=== PATIENT | female | born 1980 | race American Indian/Alaskan Native ===

== ENCOUNTER 2020-05-09 18:56 | Emergency (ER) | payer SELFPAY ==
[2020-05-09 19:04] VITALS: BP 143/102
--- NOTE | 2020-05-09 19:09 | Event Note ---
ED Screening Note Date of service: 05/09/20 Time: 19:08 ED Screening Note: Patient complains of migraine x1 week History of migraines currently taking Imitrex and multiple other medications- states these are now working Follows with neurology for patient This initial assessment/diagnostic orders/clinical plan/treatment(s) is/are subject to change based on patients health status, clinical progression and re- assessment by fellow clinical providers in the ED. Further treatment and workup at subsequent clinical providers discretion. Patient/guardian urged not to elope from the ED as their condition may be serious if not clinically assessed and managed. Initial orders include: Labs Further evaluation in ACC
[2020-05-09 19:46] LABS: Basophils # (Auto) 0.1 K/mm3 (0.0-0.1); Basophils % (Auto) 1.1 % (0.0-1.8); Eosinophils # (Auto) 0.3 K/mm3 (0.0-0.4); Eosinophils % (Auto) 4.1 % (0.0-4.3); Hematocrit 39.5 % (30.3-42.9); Hemoglobin 12.4 gm/dl (10.1-14.3); Lymphocytes # (Auto) 2.7 K/mm3 (1.2-5.4); Lymphocytes % (Auto) 40.4 % (13.4-35.0); Mean Corpuscular HGB Conc 32 % (30-34); Mean Corpuscular Volume 81 fl (79-97); Monocytes # (Auto) 0.6 K/mm3 (0.0-0.8); Monocytes % (Auto) 9.6 % (0.0-7.3); Platelet Count 346 K/mm3 (140-440); Red Blood Count 4.86 M/mm3 (3.65-5.03); Red Cell Distribution Width 16.4 % (13.2-15.2)
[2020-05-09 20:03] LABS: Alanine Aminotransferase 16 units/L (7-56); Albumin 4.5 g/dL (3.9-5); Blood Urea Nitrogen 12 mg/dL (7-17); Calcium 9.6 mg/dL (8.4-10.2); Hemolysis Index 62
[2020-05-09] MEDS ORDERED: METOCLOPRAMIDE 10 MG/2 ML INJ IV ONE (20:04)
[2020-05-09] MEDS ORDERED: diphenhydrAMINE 50 MG/ML VIAL IV ONE (20:04)
[2020-05-09] MEDS ORDERED: SODIUM CHLORIDE 0.9% 1000 ML 1,000 ML IV ONE (20:04)
[2020-05-09 20:05] LABS: BUN/Creatinine Ratio 17
--- NOTE | 2020-05-09 20:06 | Cat Scan Report ---
NONENHANCED CT SCAN OF THE HEAD: INDICATION / CLINICAL INFORMATION: 39 years Female; abnormal migraine. TECHNIQUE: Routine CT head without contrast. All CT scans at this location are performed using CT dos e reduction for ALARA by means of automated exposure control. COMPARISON: None. FINDINGS: BRAIN / INTRACRANIAL CONTENTS: No acute hemorrhage, mass effect, midline shift, hydrocephalus, or acu te, large territorial infarct. No chronic infarct or focal atrophy. Normal brain volume and ventricul ar/sulcal size for age. No significant white matter abnormality. CRANIOCERVICAL JUNCTION: No significant abnormality. ORBITS: No significant abnormality of visualized orbits. SINUSES / MASTOIDS: No significant abnormality of the visualized paranasal sinuses or mastoid air kristi ls. ADDITIONAL FINDINGS: Incidental cyst of the cistern of velum interpositum IMPRESSION: Normal nonenhanced CT scan of the brain Signer Name: Brionna Quinones MD Signed: 05/09/2020 8:02 PM Workstation Name: [id number]
--- NOTE | 2020-05-09 21:10 | Emergency Department Report ---
ED Headache HPI - General Chief Complaint: Headache Stated Complaint: HEAD PAIN/NAUSEA Time Seen by Provider: 05/09/20 19:08 Source: patient, RN notes reviewed Exam Limitations: no limitations - History of Present Illness Initial Comments: This is a 39-year-old female nontoxic, well nourished in appearance, no acute signs of distress presents to the ED with c/o of acute on chronic headache. Patient describes headache as diffuse with level of 8 out of 10. Patient denies thunderclap headache. Patient denies any radiation of pain. Patient denies any head trauma. Patient denies any visual changes. Patient denies worse headache. Patient stated that darkness makes headache better and bright lights make the headache worse. Patient also has nausea vomiting but denies any abdominal pain. Denies any blood in vomit. Denies any diarrhea constipation. Patient denies any numbness, tingling, fever, chills, chest pain, shortness of breath, stiff neck. Patient denies facial drooping or one sided weakness. Patient denies any radiation of pain. Patient stated allergies to Flexeril and Toradol. Past medical history includes migraine headaches. Timing/Duration: episodic Quality: moderate Head Injury Location: other (diffuse) Recent Head Trauma: occasional headaches Associated Symptoms: denies symptoms. denies: confusion, fatigue, facial pain, fever/chills, flushing, loss of consciousness, nausea/vomiting, nasal congestion, nasal drainage, numbness in legs/feet, rash, seizures, sinus infection, stiff neck, vision changes, weakness Allergies/Adverse Reactions: Allergies cyclobenzaprine [From Flexeril] Allergy (Verified 05/09/20 18:58) Swelling ketorolac [From Toradol] Allergy (Verified 05/09/20 18:58) Swelling Home Medications: Ambulatory Orders Butalb/Acetaminophen/Caffeine [Fioricet 50-300-40 mg CAP] 1 cap PO Q8HR PRN #12 cap 05/09/20 ED Review of Systems ROS: Stated complaint: HEAD PAIN/NAUSEA Other details as noted in HPI Constitutional: denies: chills, fever Eyes: denies: eye pain, eye discharge, vision change ENT: denies: ear pain, throat pain Respiratory: denies: cough, shortness of breath, wheezing Cardiovascular: denies: chest pain, palpitations Endocrine: no symptoms reported Gastrointestinal: denies: abdominal pain, nausea, diarrhea Genitourinary: denies: urgency, dysuria, discharge Musculoskeletal: denies: back pain, joint swelling, arthralgia Skin: denies: rash, lesions Neurological: headache. denies: weakness, paresthesias Psychiatric: denies: anxiety, depression Hematological/Lymphatic: denies: easy bleeding, easy bruising ED Past Medical Hx - Past Medical History Previous Medical History?: Yes Hx Hypertension: Yes Hx Headaches / Migraines: Yes Additional medical history: IBS. Idiopathic intracranial hypertension - Surgical History Past Surgical History?: No - Medications Home Medications: Home Medications Medication Instructions Recorded Confirmed Last Taken Type Butalb/Acetaminophen/Caffeine 1 cap PO Q8HR PRN #12 cap 05/09/20 Unknown Rx [Fioricet 50-300-40 mg CAP] ED Physical Exam - General Limitations: No Limitations General appearance: alert, in no apparent distress - Head Head exam: Present: atraumatic, normocephalic - Eye Eye exam: Present: normal appearance, PERRL, EOMI - Neck Neck exam: Present: normal inspection, full ROM. Absent: tenderness, meningismus, lymphadenopathy - Respiratory Respiratory exam: Present: normal lung sounds bilaterally. Absent: respiratory distress, wheezes, rales, rhonchi, stridor, chest wall tenderness, accessory muscle use, decreased breath sounds, prolonged expiratory - Cardiovascular Cardiovascular Exam: Present: regular rate, normal rhythm, normal heart sounds. Absent: bradycardia, tachycardia, irregular rhythm, systolic murmur, diastolic murmur, rubs, gallop - GI/Abdominal GI/Abdominal exam: Present: soft, normal bowel sounds. Absent: distended, tenderness, guarding, rebound, rigid, diminished bowel sounds - Extremities Exam Extremities exam: Present: normal inspection, full ROM - Back Exam Back exam: Present: normal inspection, full ROM. Absent: tenderness, CVA tenderness (R), CVA tenderness (L), muscle spasm, paraspinal tenderness, vertebral tenderness, rash noted - Neurological Exam Neurological exam: Present: alert, oriented X3, normal gait - Expanded Neurological Exam Expanded Patient oriented to: Present: person, place, time Cranial nerves: EOM's Intact: Normal, Facial Sensation: Normal Cerebellar function: Finger to Nose: Normal Upper motor neuron: Pronator Drift: Normal, Sensory Extinction: Normal Motor strength exam: RUE: 5, LUE: 5, RLE: 5, LLE: 5 Best Eye Response ([place]): (4) open spontaneously Best Motor Response ([place]): (6) obeys commands Best Verbal Response ([place]): (5) oriented [place] Total: 15 - Psychiatric Psychiatric exam: Present: normal affect, normal mood - Skin Skin exam: Present: warm, dry, intact, normal color. Absent: rash ED Course Vital Signs 05/09/20 18:58 Temperature 98.5 F Pulse Rate 85 Respiratory 20 Rate Blood Pressure 143/102 [Right] O2 Sat by Pulse 98 Oximetry - Reevaluation(s) Reevaluation #1: 05/09/20 21:14 Patient is speaking in full sentences with no signs of distress noted. ED Medical Decision Making - Lab Data Result diagrams: 05/09/20 19:21 05/09/20 19:21 Lab Results 05/09/20 05/09/20 05/09/20 Range/Units 19:21 19:21 19:21 WBC 6.6 (4.5-11.0) K/mm3 RBC 4.86 (3.65-5.03) M/mm3 Hgb 12.4 (10.1-14.3) gm/dl Hct 39.5 (30.3-42.9) % MCV 81 (79-97) fl MCH 26 L (28-32) pg MCHC 32 (30-34) % RDW 16.4 H (13.2-15.2) % Plt Count 346 (140-440) K/mm3 Lymph % (Auto) 40.4 H (13.4-35.0) % [place] % (Auto) 9.6 H (0.0-7.3) % Eos % (Auto) 4.1 (0.0-4.3) % Baso % (Auto) 1.1 (0.0-1.8) % Lymph # (Auto) 2.7 (1.2-5.4) K/mm3 [place] # (Auto) 0.6 (0.0-0.8) K/mm3 Eos # (Auto) 0.3 (0.0-0.4) K/mm3 Baso # (Auto) 0.1 (0.0-0.1) K/mm3 Seg Neutrophils % 44.8 (40.0-70.0) % Seg Neutrophils # 2.9 (1.8-7.7) K/mm3 Sodium 137 (137-145) mmol/L Potassium 4.5 (3.6-5.0) mmol/L Chloride 105.6 (98-107) mmol/L Carbon Dioxide 22 (22-30) mmol/L Anion Gap 14 mmol/L BUN 12 (7-17) mg/dL Creatinine 0.7 (0.6-1.2) mg/dL Estimated GFR > 60 ml/min BUN/Creatinine Ratio 17 % Glucose 96 (65-100) mg/dL Calcium 9.6 (8.4-10.2) mg/dL Total Bilirubin < 0.20 (0.1-1.2) mg/dL AST 20 (5-40) units/L ALT 16 (7-56) units/L Alkaline Phosphatase 97 (35-129) units/L Total Protein 7.6 (6.3-8.2) g/dL Albumin 4.5 (3.9-5) g/dL Albumin/Globulin Ratio 1.5 % HCG, Qual Negative (Negative) - Radiology Data Referring Physician: YUE LAGUNA Patient Name: YUE FLORES Date of : 1980 Sex: Female Report Date: 2020-05-09 Report Status: [place] [address] Cat Scan Report Signed Patient: YUE FLORES R#: [id number] : 1980 Acct:[id number] Age/Sex: 39 / F ADM Date: 05/09/20 Loc: ED Attending Dr: Ordering Physician: YUE LAGUNA Date of Service: 05/09/20 Procedure(s): CT head/brain wo con Accession Number(s): [id number] cc: YUE LAGUNA NONENHANCED CT SCAN OF THE HEAD: INDICATION / CLINICAL INFORMATION: 39 years Female; abnormal migraine. TECHNIQUE: Routine CT head without contrast. All CT scans at this location are performed using CT dose reduction for ALARA by means of automated exposure control. COMPARISON: None. FINDINGS: BRAIN / INTRACRANIAL CONTENTS: No acute hemorrhage, mass effect, midline shift, hydrocephalus, or acute, large territorial infarct. No chronic infarct or focal atrophy. Normal brain volume and ventricular/sulcal size for age. No significant white matter abnormality. CRANIOCERVICAL JUNCTION: No significant abnormality. ORBITS: No significant abnormality of visualized orbits. SINUSES / MASTOIDS: No significant abnormality of the visualized paranasal sinuses or mastoid air cells. ADDITIONAL FINDINGS: Incidental cyst of the cistern of velum interpositum IMPRESSION: Normal nonenhanced CT scan of the brain Signer Name: Brionna Quinones MD Signed: 05/09/2020 8:02 PM Workstation Name: [id number] Transcribed By: BS Dictated By: Brionna Basilio MD Electronically Authenticated By: Brionna Basilio MD Signed Date/Time: 05/09/202001 DD/ 99 TD/TT: - Medical Decision Making This is a 39-year-old female that presents with headache. Patient is stable and was examined by me. Patient is neurologically stable. There is no stiff neck or neck pain. Vital signs are stable. Patient is afebrile. Patient received Benadryl, Reglan, and 1 L of normal saline which the patient stated that headache has subsided and resolved. Patient is notified of the CT results with no questions noted by the patient. A p.o. challenge has been obtained and patient tolerated well with no nausea vomiting. Patient was instructed not to operate any machinery after discharged due to drowsiness of Benadryl. Patient stated that a family member will drive patient home. Patient is discharged with Fioricet. Patient was referred to Follow-up with a primary care/neurologist doctor in 3-5 days or if symptoms worsen and continue return to emergency room as soon as possible. At time of discharge, the patient does not seem toxic or ill in appearance. No acute signs of distress noted. Patient agrees to discharge treatment plan of care. No further questions noted by the patient. Critical care attestation.: If time is entered above; I have spent that time in minutes in the direct care of this critically ill patient, excluding procedure time. ED Disposition Clinical Impression: Headache Qualifiers: Headache type: unspecified Headache chronicity pattern: episodic headache Intractability: not intractable Qualified Code(s): R51.9 - Headache, unspecified Disposition: DC-01 TO HOME OR SELFCARE Is pt being admited?: No Does the pt Need Aspirin: No Condition: Stable Instructions: Recurrent Migraine Headache, [id number] Additional Instructions: Follow-up with a primary care doctor in 3-5 days or if symptoms worsen and continue return to emergency room as soon as possible. Prescriptions: Butalb/Acetaminophen/Caffeine [Fioricet 50-300-40 mg CAP] 1 cap PO Q8HR PRN #12 cap PRN Reason: Headache Referrals: PRIMARY CAREMD [Referring] - 3-5 Days NAYLA JONES MD [Staff Physician] - 3-5 Days Forms: Work/School Release Form(ED) Time of Disposition: 21:26
== END 2020-05-09 21:57 | disposition home or self-care (01) ==
LOC: ED 18:56
DX: G43.909 Migraine, unspecified, not intractable, without status migrainosus (principal); I10 Essential (primary) hypertension
CPT/HCPCS: 36415; 70450; 80053; 84703; 85025; 96361; 96374; 96375; 99284; J1200; J2765; J7030

== ENCOUNTER 2020-09-18 09:28 | Emergency (ER) | payer OTHER ==
--- NOTE | 2020-09-18 09:37 | Event Note ---
ED Screening Note ED Screening Note: RECENT UTI ON AUGMENT AND FLAGYL NO WITH DIARRHEA AND ABD PAIN ? CAUSE ANTBX WILL CHECK UA TO BE SURE SHE IS RESPONDING HX PCOS LAST MENSES BRANDY This initial assessment/diagnostic orders/clinical plan/treatment(s) is/are subject to change based on patients health status, clinical progression and re-assessment by fellow clinical providers in the ED. Further treatment and workup at subsequent clinical providers discretion. Patient/guardian urged not to elope from the ED as their condition may be serious if not clinically assessed and managed. Initial orders include: UA
[2020-09-18 10:06] LABS: Bilirubin,Urine NEG (Negative); Blood,Urine LG (Negative); Color,Urine Amber (Yellow); Mucus,Urine 3+ /HPF
[2020-09-18 10:07] LABS: RBC,Urine > 182.0 /HPF (0.0-6.0)
[2020-09-18 10:38] LABS: Hematocrit 43.4 % (30.3-42.9); Hemoglobin 13.7 gm/dl (10.1-14.3); Mean Corpuscular HGB Conc 32 % (30-34); Mean Corpuscular Volume 78 fl (79-97); Red Blood Count 5.54 M/mm3 (3.65-5.03); Red Cell Distribution Width 15.1 % (13.2-15.2)
[2020-09-18 10:39] LABS: Platelet Count 155 K/mm3 (140-440)
[2020-09-18] MEDS ORDERED: LIDOCAINE-MPF (1%) 10 MG/1 ML VIAL 5 ML INFILTRATI ONE (10:55)
[2020-09-18] MEDS ORDERED: ONDANSETRON 4 MG ODT TAB PO ONE (10:55)
[2020-09-18] MEDS ORDERED: IBUPROFEN 800 MG TAB PO ONE (10:57)
--- NOTE | 2020-09-18 10:57 | Emergency Department Report ---
ED Dysuria HPI - HPI Chief Complaint: Nausea/Vomiting/Diarrhea Stated Complaint: FEVER/ABD PAIN Time Seen by Provider: 09/18/20 09:36 Duration: 5 Days Location of Discomfort: Suprapubic Symptoms: Dysuria: Yes, Frequency: No, Suprapubic Pain: Yes, Flank Pain: No, Fever: Yes, Hematuria: No, Abdominal Pain: No, Previous UTI's: Yes Other History: Patient is a 40-year-old -[place] female that comes to the emergency room complaining of suprapubic pain. Patient states that she is on Augmentin for a UTI. She is also on Flagyl for BV. She states that she is not getting better. Patient denied fever although she had a low-grade fever in triage. She is ambulatory, taking p.o. and in no acute distress on arrival to the ER. ED Review of Systems ROS: Stated complaint: FEVER/ABD PAIN Other details as noted in HPI Comment: All other systems reviewed and negative ED Past Medical Hx - Past Medical History Hx Hypertension: Yes Hx Headaches / Migraines: Yes Additional medical history: IBS. Idiopathic intracranial hypertension - Surgical History Past Surgical History?: No - Family History Family history: no significant - Social History Smoking Status: Never Smoker Substance Use Type: None - Medications Home Medications: Home Medications Medication Instructions Recorded Confirmed Last Taken Type Ondansetron [Zofran Odt] 4 mg PO Q8HR PRN #10 tab.rapdis 09/18/20 Unknown Rx Sulfamethoxazole/Trimethoprim 1 each PO BID #10 tablet 09/18/20 Unknown Rx [Bactrim DS TAB] Dysuria Exam - Exam General: Vital signs noted. No distress. Alert and acting appropriately. Exam: Yes Moist Mucous Membranes, No CVA Tenderness, No Abdominal Tenderness, No Rigidity or Guarding Labs: Lab Results 09/18/20 09/18/20 Range/Units 09:49 10:05 WBC 6.1 (4.5-11.0) K/mm3 RBC 5.54 H (3.65-5.03) M/mm3 Hgb 13.7 (10.1-14.3) gm/dl Hct 43.4 H (30.3-42.9) % MCV 78 L (79-97) fl MCH 25 L (28-32) pg MCHC 32 (30-34) % RDW 15.1 (13.2-15.2) % Plt Count 155 (140-440) K/mm3 Urine Color Rosa (Yellow) Urine Turbidity Cloudy (Clear) Urine pH 6.0 (5.0-7.0) Ur Specific [place] 1.025 (1.003-1.030) Urine Protein 100 mg/dl (Negative) mg/dL Urine Glucose (UA) Neg (Negative) mg/dL Urine Ketones Neg (Negative) mg/dL Urine Blood Lg (Negative) Urine Nitrite Neg (Negative) Urine Bilirubin Neg (Negative) Urine Urobilinogen 2.0 (<2.0) mg/dL Ur Leukocyte Esterase Mod (Negative) Urine WBC (Auto) 14.0 H (0.0-6.0) /HPF Urine RBC (Auto) > 182.0 (0.0-6.0) /HPF U Epithel Cells (Auto) 66.0 H (0-13.0) /HPF Urine Mucus 3+ /HPF ED Course Vital Signs 09/18/20 09/18/20 09:36 09:37 Temperature 99.6 F Pulse Rate 99 H Respiratory 20 Rate Blood Pressure 109/68 O2 Sat by Pulse 95 Oximetry ED Medical Decision Making - Lab Data Result diagrams: 09/18/20 10:05 09/18/20 10:05 - Medical Decision Making Labs 09/18/20 09/18/20 09/18/20 09:49 10:05 10:05 WBC 6.1 RBC 5.54 H Hgb 13.7 Hct 43.4 H MCV 78 L MCH 25 L MCHC 32 RDW 15.1 Plt Count 155 Sodium 141 Chloride 103.8 Carbon Dioxide 24 Anion Gap 17 BUN 11 Creatinine 1.0 Estimated GFR > 60 BUN/Creatinine Ratio 11 Glucose 112 H Calcium 8.6 Urine Color Rosa Urine Turbidity Cloudy Urine pH 6.0 Ur Specific [place] 1.025 Urine Protein 100 mg/dl Urine Glucose (UA) Neg Urine Ketones Neg Urine Blood Lg Urine Nitrite Neg Urine Bilirubin Neg Urine Urobilinogen 2.0 Ur Leukocyte Esterase Mod Urine WBC (Auto) 14.0 H Urine RBC (Auto) > 182.0 U Epithel Cells (Auto) 66.0 H Urine Mucus 3+ Vital Signs 09/18/20 09/18/20 09:36 09:37 Temperature 99.6 F Pulse Rate 99 H Respiratory 20 Rate Blood Pressure 109/68 O2 Sat by Pulse 95 Oximetry Patient states that she is on Augmentin. She is not . She has no nausea or vomiting. She does report some diarrhea with her antibiotics. Patient medicated with Rocephin IM. On discharge patient was noted to have spiked a temperature. She is given a liter normal saline. WBC noted to be normal. Urine has been sent for culture. SENT HOME ON BACTRIM. 1415 ON [address]; TEMP TRENDING DOWN. NO PAIN. TAKING PO. PT BEING DC HOME WITH DC PLAN OF CARE WITH PCP FOLLOW UP TO BE SURE SHE RESPONDS TO MEDICATIONS. NO N/V/D. NO ABD PAIN. NO CVA TENDERNESS; AMBULATORY AND TAKING PO ON DC. - Differential Diagnosis UTI, rule out Critical care attestation.: If time is entered above; I have spent that time in minutes in the direct care of this critically ill patient, excluding procedure time. ED Disposition Clinical Impression: UTI (urinary tract infection) Disposition: DC-01 TO HOME OR SELFCARE Is pt being admited?: No Does the pt Need Aspirin: No Condition: Stable Instructions: Urinary Tract Infection, Adult Additional Instructions: continue flagyl stop augment. continue med at home for yeast MEDS ORDERED TODAY EAT YOGURT DAILY DRINK A LOT OF WATER MOTRIN AND TYLENOL ALTERNATING FOR PAIN URINE WAS SENT FOR CULTURE TODAY WE WILL CALL YOU IF WE NEED TO CHANGE THE ANTIBIOTIC Prescriptions: Sulfamethoxazole/Trimethoprim [Bactrim DS TAB] 1 each PO BID #10 tablet Ondansetron [Zofran Odt] 4 mg PO Q8HR PRN #10 tab.rapdis PRN Reason: Vomiting Referrals: NAYLA JONES MD [Staff Physician] - 3-5 Days Forms: Work/School Release Form(ED) Time of Disposition: 11:00
[2020-09-18 10:59] LABS: BUN/Creatinine Ratio 11; Blood Urea Nitrogen 11 mg/dL (7-17); Calcium 8.6 mg/dL (8.4-10.2); Hemolysis Index 31
[2020-09-18] MEDS ORDERED: SODIUM CHLORIDE 0.9% 1000 ML 1,000 ML IV ONE (12:18)
[2020-09-18 13:54] VITALS: BP 123/63
[2020-09-18 15:05] LABS: Total Cells Counted 100
[2020-09-18 15:06] LABS: Hypochromasia 1+; Platelet Estimate Consistent w Auto
== END 2020-09-18 14:15 | disposition home or self-care (01) ==
LOC: ED 09:28
DX: N39.0 Urinary tract infection, site not specified (principal); I10 Essential (primary) hypertension; G43.909 Migraine, unspecified, not intractable, without status migrainosus; Z88.8 Allergy status to other drugs, medicaments and biological substances; Z79.899 Other long term (current) drug therapy
CPT/HCPCS: 36415; 80048; 81001; 85007; 85025; 87076; 87086; 87186; 96360; 96372; 99283; J0696; J7030; Q0162

== ENCOUNTER 2020-10-03 14:50 | Emergency (ER) | payer OTHER ==
--- NOTE | 2020-10-03 15:29 | Event Note ---
ED Screening Note Date of service: 10/03/20 Time: 15:27 ED Screening Note: 40-year-old female patient with history of pancreatitis and irritable bowel syndrome presents to the emergency department with complaints of epigastric abdominal pain and nausea for 5 days. Patient states she was evaluated by her primary care provider, who called her today to notify her that labs were concerning for pancreatitis, and advised her to come to the emergency department for further evaluation. No recent alcohol use. States her bowel movements are consistent with baseline. Last bowel movement was today. General: Awake, appropriately interactive, no acute distress. Neck: Supple. Full range of motion intact. Cardiovascular: Normal peripheral perfusion. Pulmonary: No respiratory distress. Patient is speaking normally without use of accessory muscles. Abdomen: Soft, non-distended. Diffuse upper abdominal tenderness most pronounced along the epigastric area without guarding, rigidity, or rebound. Skin: No apparent rashes or lesions. Neurological: No facial asymmetry. Speech is clear. Follows commands. Patient is alert and oriented. Musculoskeletal: Moves all four extremities spontaneously with normal range of motion. Psych: Cooperative. Appropriate mood and affect. I have greeted and performed a focused rapid initial assessment of this patient. A comprehensive ED assessment and evaluation of the patient, analysis of all test results, and completion of the medical decision-making process will be conducted by additional ED providers. This initial assessment/diagnostic orders/clinical plan/treatment(s) is/are subject to change based on patients health status, clinical progression and re-assessment. Further treatment and workup at subsequent clinical provider's discretion. Patient/guardian urged not to elope from the ED as their condition may be serious if not clinically as sessed and managed.
[2020-10-03 16:08] LABS: Bacteria,Urine 1+ /HPF (Negative); Bilirubin,Urine NEG (Negative); Blood,Urine SM (Negative); Color,Urine Yellow (Yellow); Mucus,Urine FEW /HPF; Protein,Urine <15 mg/dL mg/dL (Negative); Urobilinogen,Urine < 2.0 mg/dL (<2.0)
[2020-10-03 16:13] LABS: Basophils # (Auto) 0.1 K/mm3 (0.0-0.1); Basophils % (Auto) 1.2 % (0.0-1.8); Eosinophils # (Auto) 0.1 K/mm3 (0.0-0.4); Hemoglobin 12.7 gm/dl (10.1-14.3); Lymphocytes % (Auto) 40.6 % (13.4-35.0); Mean Corpuscular HGB Conc 32 % (30-34); Mean Corpuscular Volume 79 fl (79-97); Monocytes # (Auto) 0.7 K/mm3 (0.0-0.8); Monocytes % (Auto) 14.7 % (0.0-7.3); Platelet Count 287 K/mm3 (140-440); Red Blood Count 5.07 M/mm3 (3.65-5.03); Red Cell Distribution Width 15.9 % (13.2-15.2)
[2020-10-03 16:34] LABS: Partial Thromboplastin Time 23.2 Sec. (24.2-36.6)
[2020-10-03 16:41] LABS: Alanine Aminotransferase 25 units/L (7-56); BUN/Creatinine Ratio 11; Blood Urea Nitrogen 8 mg/dL (7-17); Calcium 9.2 mg/dL (8.4-10.2); Hemolysis Index 2
[2020-10-03] MEDS ORDERED: MORPHINE 4 MG/1 ML INJ IV ONE (21:11)
[2020-10-03] MEDS ORDERED: ONDANSETRON 4 MG/2 ML INJ IV ONE (21:11)
[2020-10-03] MEDS ORDERED: FAMOTIDINE 20 MG/2 ML INJ IV ONE (21:11)
[2020-10-03] MEDS ORDERED: SODIUM CHLORIDE 0.9% 1000 ML 1,000 ML IV ONE (21:19)
--- NOTE | 2020-10-03 21:24 | Emergency Department Report ---
<LASHONVANDANARodrigoSOPHIA - Last Filed: 10/03/20 22:33> ED Abdominal Pain HPI - General Chief Complaint: Abdominal Pain Stated Complaint: MY PANCREAS IS INFLAMMED Source: patient Mode of arrival: Ambulatory Limitations: No Limitations - History of Present Illness Initial Comments: Patient is a 40-year-old -Monegasque female with history of pancreatitis, hypertension, vje-vooqycr-tifwrgpze diabetes and irritable bowel syndrome and who was recently admitted for Covid pneumonia and admitted at the hospital until about 10 days ago when she was discharged from the hospital, presents to the ED with complaints of epigastric abdominal pain with nausea and vomiting for 5 days. Patient states that the pain has been constant, persistent and that it gets worse with any food intake. Patient states that she was evaluated by her primary care provider 2 days ago and who called her today to notify her that her most recent lab test results were concerning for acute pancreatitis, and advised her to come to the ED for further evaluation. Patient denies no recent alcohol use intake. Patient states that the last time she had nausea and vomiting was 2 days ago and admits that she has not been able to eat or drink anything because of persistent nausea and pain. Patient also states that her bowel movements are consistent with baseline with the last bowel movement being earlier today. Patient denies dizziness, syncope, fever, chills, diarrhea, dysuria, chest pain or shortness of breath, cough, headache, vaginal bleeding, vaginal discharge or dysuria, hematemesis or hematochezia, palpitations or change in vision. MD Complaint: abdominal pain -: Sudden, days(s) (5) Location: epigastric Radiation: none Migration to: no migration Severity: severe Severity scale (0 -10): 9 Quality: cramping, aching, sharp Consistency: constant Improves With: nothing Worsens With: eating, vomiting Context: other (Recently diagnosed with acute pancreatitis) Associated Symptoms: denies other symptoms, nausea, vomiting, anorexia. denies: diarrhea, fever, chills, constipation, dysuria, hematemesis, hematochezia, melena - Related Data LMP (females 10-50): 3 weeks Previous Rx's Medication Instructions Recorded Last Taken Type Sulfamethoxazole/Trimethoprim 1 each PO BID #10 tablet 09/18/20 Unknown Rx [Bactrim DS TAB] Azithromycin [Zithromax TAB] 500 mg PO QDAY 5 Days #5 tablet 10/04/20 Unknown Rx Esomeprazole Magnesium [NexIUM] 40 mg PO QDAY 30 Days #30 10/04/20 Unknown Rx capsule. Ondansetron [Zofran ODT TAB] 4 mg PO Q6HR PRN #10 tab.rapdis 10/04/20 Unknown Rx Allergies Allergy/AdvReac Type Severity Reaction Status Date / Time cyclobenzaprine Allergy Swelling Verified 09/18/20 09:31 [From Flexeril] ketorolac [From Toradol] Allergy Swelling Verified 09/18/20 09:31 ED Review of Systems Constitutional: denies: chills, fever Eyes: denies: eye pain, eye discharge, vision change ENT: denies: ear pain, throat pain Respiratory: denies: cough, shortness of breath, wheezing Cardiovascular: denies: chest pain, palpitations Endocrine: no symptoms reported Gastrointestinal: abdominal pain, nausea, vomiting. denies: diarrhea Genitourinary: denies: urgency, dysuria, discharge Musculoskeletal: denies: back pain, joint swelling, arthralgia Skin: denies: rash, lesions Neurological: denies: headache, weakness, paresthesias Psychiatric: denies: anxiety, depression Hematological/Lymphatic: denies: easy bleeding, easy bruising ED Past Medical Hx - Past Medical History Previous Medical History?: Yes Hx Hypertension: Yes Hx Headaches / Migraines: Yes Additional medical history: IBS, pancreatitis. Idiopathic intracranial hypertension - Surgical History Past Surgical History?: Yes Additional Surgical History: TL - Social History Smoking Status: Never Smoker Substance Use Type: None - Medications Home Medications: Home Medications Medication Instructions Recorded Confirmed Last Taken Type Sulfamethoxazole/Trimethoprim 1 each PO BID #10 tablet 09/18/20 Unknown Rx [Bactrim DS TAB] Azithromycin [Zithromax TAB] 500 mg PO QDAY 5 Days #5 tablet 10/04/20 Unknown Rx Esomeprazole Magnesium [NexIUM] 40 mg PO QDAY 30 Days #30 10/04/20 Unknown Rx capsule. Ondansetron [Zofran ODT TAB] 4 mg PO Q6HR PRN #10 tab.rapdis 10/04/20 Unknown Rx ED Physical Exam - General Limitations: No Limitations General appearance: alert, in no apparent distress - Head Head exam: Present: atraumatic, normocephalic, normal inspection - Eye Eye exam: Present: normal appearance, PERRL, EOMI Pupils: Present: normal accommodation - ENT ENT exam: Present: normal exam, normal orophraynx, mucous membranes moist, TM's normal bilaterally, normal external ear exam - Neck Neck exam: Present: normal inspection, full ROM - Respiratory Respiratory exam: Present: normal lung sounds bilaterally. Absent: respiratory distress, wheezes, rales, rhonchi, chest wall tenderness, accessory muscle use, decreased breath sounds, prolonged expiratory - Cardiovascular Cardiovascular Exam: Present: regular rate, normal rhythm, normal heart sounds. Absent: systolic murmur, diastolic murmur, rubs, gallop - GI/Abdominal GI/Abdominal exam: Present: soft, tenderness (Palpable epigastric tenderness), normal bowel sounds. Absent: guarding, rebound, hyperactive bowel sounds, hypoactive bowel sounds, organomegaly - Extremities Exam Extremities exam: Present: normal inspection, full ROM, normal capillary refill - Back Exam Back exam: Present: normal inspection, full ROM. Absent: tenderness, CVA tenderness (R), CVA tenderness (L), muscle spasm, paraspinal tenderness, vertebral tenderness - Neurological Exam Neurological exam: Present: alert, oriented X3, CN II-XII intact, normal gait, reflexes normal - Psychiatric Psychiatric exam: Present: normal affect, normal mood - Skin Skin exam: Present: warm, dry, intact, normal color. Absent: rash ED Medical Decision Making - Lab Data Result diagrams: 10/03/20 15:44 10/03/20 15:44 - Radiology Data Radiology results: report reviewed, image reviewed - Medical Decision Making This is a 40-year-old -[place]onegas[place] female with history of pancreatitis, hypertension, [id number] diabetes and irritable bowel syndrome and who was recently admitted for Covid pneumonia and admitted at the hospital until about 10 days ago when she was discharged from the hospital, presents to the ED with complaints of epigastric abdominal pain with nausea and vomiting for 5 days. Patient states that the pain has been constant, persistent and that it gets worse with any food intake. Patient states that she was evaluated by her primary care provider 2 days ago and who called her today to notify her that her most recent lab test results were concerning for acute pancreatitis, and advised her to come to the ED for further evaluation. Patient denies no recent alcohol use intake. Patient states that the last time she had nausea and vomiting was 2 days ago and admits that she has not been able to eat or drink anything because of persistent nausea and pain. Patient also states that her bowel movements are consistent with baseline with the last bowel movement being earlier today. In the ED, patient is alert and oriented x3 and is not in any distress but appears to be in pain. Patient was treated for pain in the ED and also given antiemetics and antacids. Lab test results were reviewed and are all nonactionable except for elevated lipase level of 288. Abdomen pelvis CT scan with IV contrast was ordered. Upon patient arrival in the room, the patient care was transferred to the ED attending physician Dr. Perales who shall review all lab test results as well as imaging reports and disposition the patient accordingly. - Differential Diagnosis Pancreatitis; GERD; gastritis; gastroenteritis; cholelithiasis; ACS ED Disposition Clinical Impression: Abdominal pain, acute, epigastric, Nausea and vomiting in adult patient, Pneumonia due to COVID-19 virus UTI (urinary tract infection) Qualifiers: Urinary tract infection type: acute cystitis Hematuria presence: with hematuria Qualified Code(s): N30.01 - Acute cystitis with hematuria Gastritis Qualifiers: Gastritis type: unspecified gastritis Chronicity: acute Gastritis bleeding: without bleeding Qualified Code(s): K29.00 - Acute gastritis without bleeding Disposition: DC- TO HOME OR SELFCARE Is pt being admited?: No Does the pt Need Aspirin: No Condition: Stable Instructions: Gastritis, Adult, Wixp-[id number], COVID-19, Abdominal Pain, Adult, Acute Pancreatitis, [id number]-Rmap, Nausea and Vomiting, Adult, Gila-vz-Hpon, Abdominal Pain, Adult, Pyrh-jo-Dehc, Bacterial Pneumonia (ED), Abdominal Pain (ED) Additional Instructions: Patient to follow-up with primary care in 2 to 3 days. Patient to follow-up with gastroenterology and pulmonology in 2 to 3 days. Patient to self quarantine for 14 days. Patient to rest. Patient to increase water. Patient to avoid strenuous exercise or heavy lifting until cleared by pulmonology and primary care. Patient to take Tylenol or ibuprofen as needed for pain. Patient to take meds as directed. Patient to return to the ER if condition worsens, changes or new symptoms arise. Prescriptions: Esomeprazole Magnesium [NexIUM] 40 mg PO QDAY 30 Days #30 capsule. Azithromycin [Zithromax TAB] 500 mg PO QDAY 5 Days #5 tablet Ondansetron [Zofran ODT TAB] 4 mg PO Q6HR PRN #10 tab.rapdis PRN Reason: Nausea And Vomiting Referrals: SOPHIA WORLEY MD [Staff Physician] - 2-3 Days NAYLA JONES MD [Staff Physician] - 2-3 Days GIOVANNA TURNER MD [Staff Physician] - 2-3 Days <COLEEN PERALES III - Last Filed: 10/04/20 06:09> ED Abdominal Pain HPI - General PUI?: No ED Review of Systems ROS: Stated complaint: MY PANCREAS IS INFLAMMED Other details as noted in HPI ED Physical Exam - General Limitations: No Limitations General appearance: alert, in no apparent distress - Head Head exam: Present: atraumatic, normocephalic - Eye Eye exam: Present: normal appearance - ENT ENT exam: Present: mucous membranes moist - Neck Neck exam: Present: normal inspection - Respiratory Respiratory exam: Present: normal lung sounds bilaterally. Absent: respiratory distress - Cardiovascular Cardiovascular Exam: Present: regular rate, normal rhythm. Absent: systolic murmur, diastolic murmur, rubs, gallop - GI/Abdominal GI/Abdominal exam: Present: soft, tenderness, normal bowel sounds. Absent: distended - Extremities Exam Extremities exam: Present: normal inspection - Back Exam Back exam: Present: normal inspection - Neurological Exam Neurological exam: Present: alert, oriented X3 - Psychiatric Psychiatric exam: Present: normal affect, normal mood - Skin Skin exam: Present: warm, dry, intact, normal color. Absent: rash ED Course Vital Signs 10/03/20 10/03/20 10/03/20 15:00 22:45 23:01 Temperature 98.2 F Pulse Rate 98 H 95 H 90 Respiratory 17 18 15 Rate Blood Pressure 149/103 135/94 Blood Pressure [Right] O2 Sat by Pulse 97 94 95 Oximetry 10/03/20 10/03/20 10/04/20 23:02 23:30 00:01 Temperature Pulse Rate 92 H 87 Respiratory 18 13 20 Rate Blood Pressure 136/87 Blood Pressure [Right] O2 Sat by Pulse 96 98 Oximetry 10/04/20 10/04/20 10/04/20 01:03 02:01 03:01 Temperature Pulse Rate 93 H 89 87 Respiratory 22 26 H Rate Blood Pressure Blood Pressure [Right] O2 Sat by Pulse 94 96 96 Oximetry 10/04/20 03:24 Temperature Pulse Rate 79 Respiratory 18 Rate Blood Pressure Blood Pressure 158/97 [Right] O2 Sat by Pulse 99 Oximetry - Reevaluation(s) Reevaluation #1: I assumed care of the patient I reviewed the findings and management of this patient in real-time and I have personally seen and examined this patient and participated in the decision making for this patient with the midlevel. Patient is a 40-year-old female who presents emergency room for abdominal pain and possible pancreatitis. Patient found to have elevated lipase. Patient will have a CT scan of the abdomen. I examined the patient. Patient has abdominal tenderness. 10/03/20 22:36 Reevaluation #2: Patient states feeling much better. Patient denies nausea. Patient denies pain. Patient states her epigastric pain has resolved. 10/04/20 01:24 Reevaluation #3: I discussed all results and clinical findings with patient. I discussed plan of care with patient. Patient agrees with plan of care. Patient is stable for discharge. Patient will be discharged home. Patient given discharge instructions. Patient voiced understanding of discharge instructions. 10/04/20 02:24 ED Medical Decision Making - Lab Data Result diagrams: 10/03/20 15:44 10/03/20 15:44 - Radiology Data Radiology results: report reviewed CT OF THE ABDOMEN AND PELVIS WITH INTRAVENOUS CONTRAST INDICATION / CLINICAL INFORMATION: Patient complains of epigastric abdominal pain. TECHNIQUE: The patient received 100 cc Omnipaque [address] scans at this location are performed using CT dose reduction for ALARA by means of automated exposure control. COMPARISON: None available. FINDINGS: ABDOMEN: The liver, spleen, gallbladder, bile ducts, pancreas, adrenal glands and right kidney are normal. There is a 2 mm nonobstructive calculus in the left mid kidney. I see no evidence of bowel obstruction, wall thickening or free air. No adenopathy is identified. There are numerous small patchy areas of groundglass parenchymal disease and consolidation scattered throughout both lower lung zones, right greater than left. No pleural effusion. PELVIS: The distal ureters and urinary bladder are normal. The uterus and ovaries are unremarkable area a normal appendix is present and there is no evidence of diverticulitis. No abnormal mass or fluid collection is seen. I do not identify a hernia. No acute osseous abnormality is present. IMPRESSION: 1. Moderate patchy multifocal parenchymal opacities in both lower lung zones are nonspecific, but likely inflammatory. Atypical causes of pneumonia, including viral pneumonia, should be considered. 2. Small nonobstructive left renal calculus. 3. No acute intra-abdominal disease is identified. - Medical Decision Making Patient is a 40-year-old female presenting for abdominal pain. Patient found to have an elevated lipase and had a CT scan of the abdomen. Patient CT scan abdomen shows no acute findings except for findings consistent with viral pneumonia and Covid. Patient oxygen saturation stable. Patient's pain was resolved with treatment. Patient received Pepcid and morphine. Patient will be treated for gastritis and UTI. Patient has already been treated for Covid. Patient was seen and discharged from the hospital. Patient stable for discharge. Patient given discharge instructions. Critical care attestation.: If time is entered above; I have spent that time in minutes in the direct care of this critically ill patient, excluding procedure time. ED Disposition Is pt being admited?: No Does the pt Need Aspirin: No Time of Disposition: 02:38
[2020-10-03] MEDS ORDERED: PIPERACILLIN/TAZOBACTAM 3.375 3.375 GM/50 ML BAG IV ONE (22:40)
--- NOTE | 2020-10-03 23:45 | History and Physical Report ---
History of Present Illness Date of examination: 10/03/20 Date of admission: 10/03/2020 Chief complaint: Abdominal Pain Past History Past Medical History: diabetes, hypertension, other (IBS, pancreatitis. Idiopathic intracranial hypertension) Past Surgical History: Other (Tubal Ligation) Social history: no significant social history Family history: no significant family history Medications and Allergies Allergies Allergy/AdvReac Type Severity Reaction Status Date / Time cyclobenzaprine Allergy Swelling Verified 09/18/20 09:31 [From Flexeril] ketorolac [From Toradol] Allergy Swelling Verified 09/18/20 09:31 Home Medications Medication Instructions Recorded Confirmed Last Taken Type Ondansetron [Zofran Odt] 4 mg PO Q8HR PRN #10 tab.rapdis 09/18/20 Unknown Rx Sulfamethoxazole/Trimethoprim 1 each PO BID #10 tablet 09/18/20 Unknown Rx [Bactrim DS TAB] Review of Systems Constitutional: no fever, no chills Ears, nose, mouth and throat: no nasal congestion, no sore throat Cardiovascular: no chest pain, no palpitations Respiratory: no cough, no shortness of breath Gastrointestinal: abdominal pain, nausea, vomiting, no diarrhea Genitourinary Female: no pelvic pain, no flank pain, no dysuria, no hematuria Musculoskeletal: no neck pain, no low back pain Integumentary: no rash, no pruritis Neurological: no headaches, no confusion Psychiatric: no anxiety, no depression Endocrine: no polyphagia, no polydipsia, no polyuria, no nocturia Exam - Constitutional Vitals: Temp Pulse Resp BP Pulse Ox 98.2 F 90 18 135/94 95 10/03/20 15:00 10/03/20 23:01 10/03/20 23:02 10/03/20 23:01 10/03/20 23:01 General appearance: Present: no acute distress, well-nourished - EENT Eyes: Present: PERRL, EOM intact. Absent: scleral icterus ENT: hearing intact, clear oral mucosa, dentition normal - Neck Neck: Present: supple, normal ROM - Respiratory Respiratory effort: normal Respiratory: bilateral: CTA - Cardiovascular Rhythm: regular Heart Sounds: Present: S1 & S2. Absent: gallop, systolic murmur, diastolic murmur, rub, click - Extremities Extremities: no ischemia, pulses intact, pulses symmetrical, No edema, normal temperature, normal color, Full ROM Peripheral Pulses: within normal limits - Abdominal General gastrointestinal: Present: soft, tender (Epigastric region. Minimal guarding. No rebound tenderness.), non-distended, normal bowel sounds. Absent: mass - Integumentary Integumentary: Present: clear, warm, dry. Absent: rash - Musculoskeletal Musculoskeletal: strength equal bilaterally - Psychiatric Psychiatric: appropriate mood/affect, intact judgment & insight, memory intact, cooperative - Neurologic Neurologic: CNII-XII intact, no focal deficits, moves all extremities Results - Labs CBC & Chem 7: 10/03/20 15:44 10/03/20 15:44 Labs: Abnormal lab results 10/03/20 10/03/20 10/03/20 Range/Units 15:44 15:44 15:44 RBC 5.07 H (3.65-5.03) M/mm3 MCH 25 L (28-32) pg RDW 15.9 H (13.2-15.2) % Lymph % (Auto) 40.6 H (13.4-35.0) % Wood % (Auto) 14.7 H (0.0-7.3) % APTT 23.2 L (24.2-36.6) Sec. Glucose 116 H (65-100) mg/dL Lipase 288 H (13-60) units/L U Epithel Cells (Auto) (0-13.0) /HPF 10/03/20 Range/Units Unknown RBC (3.65-5.03) M/mm3 MCH (28-32) pg RDW (13.2-15.2) % Lymph % (Auto) (13.4-35.0) % Wood % (Auto) (0.0-7.3) % APTT (24.2-36.6) Sec. Glucose (65-100) mg/dL Lipase (13-60) units/L U Epithel Cells (Auto) 16.0 H (0-13.0) /HPF Assessment and Plan - Patient Problems (1) Acute pancreatitis Current Visit: Yes Status: Acute Qualifiers: Pancreatitis type: unspecified pancreatitis type Acute pancreatitis complication: unspecified Qualified Code(s): K85.90 - Acute pancreatitis without necrosis or infection, unspecified (2) Abdominal pain, acute, epigastric Current Visit: Yes Status: Acute (3) DVT prophylaxis Current Visit: Yes Status: Acute (4) Full code status Current Visit: Yes Status: Acute
--- NOTE | 2020-10-04 01:30 | Cat Scan Report ---
CT OF THE ABDOMEN AND PELVIS WITH INTRAVENOUS CONTRAST INDICATION / CLINICAL INFORMATION: Patient complains of epigastric abdominal pain. TECHNIQUE: The patient received 100 cc Omnipaque [address] scans at this location are performed using CT dose reduction for ALARA by means of automated exposure control. COMPARISON: None available. FINDINGS: ABDOMEN: The liver, spleen, gallbladder, bile ducts, pancreas, adrenal glands and right kidney are no rmal. There is a 2 mm nonobstructive calculus in the left mid kidney. I see no evidence of bowel obst ruction, wall thickening or free air. No adenopathy is identified. There are numerous small patchy areas of groundglass parenchymal disease and consolidation scattered throughout both lower lung zones, right greater than left. No pleural effusion. PELVIS: The distal ureters and urinary bladder are normal. The uterus and ovaries are unremarkable ar ea a normal appendix is present and there is no evidence of diverticulitis. No abnormal mass or fluid collection is seen. I do not identify a hernia. No acute osseous abnormality is present. IMPRESSION: 1. Moderate patchy multifocal parenchymal opacities in both lower lung zones are nonspecific, but lik andres inflammatory. Atypical causes of pneumonia, including viral pneumonia, should be considered. 2. Small nonobstructive left renal calculus. 3. No acute intra-abdominal disease is identified. Signer Name: Jonatan Epps MD Signed: 10/04/2020 1:26 AM Workstation Name: [id number]
[2020-10-04 03:25] VITALS: BP 158/97
== END 2020-10-04 03:24 | disposition home or self-care (01) ==
LOC: ED 14:50
DX: U07.1 COVID-19 (principal); J12.82 Pneumonia due to coronavirus disease 2019; N39.0 Urinary tract infection, site not specified; K29.70 Gastritis, unspecified, without bleeding; R10.13 Epigastric pain; R11.2 Nausea with vomiting, unspecified; I10 Essential (primary) hypertension; G43.909 Migraine, unspecified, not intractable, without status migrainosus; Z98.890 Other specified postprocedural states; Z79.2 Long term (current) use of antibiotics; Z79.899 Other long term (current) drug therapy; Z88.8 Allergy status to other drugs, medicaments and biological substances
CPT/HCPCS: 36415; 74177; 80053; 81001; 83690; 83735; 84484; 84703; 85025; 85610; 85730; 96365; 96375; 99284; J2270; J2405; J2543; J7030; Q9967

== ENCOUNTER 2021-04-09 09:25 | Outpatient (CLI) | payer OTHER ==
--- NOTE | 2021-04-09 10:50 | Cat Scan Report ---
CT ABDOMEN AND PELVIS WITHOUT CONTRAST INDICATION / CLINICAL INFORMATION: URGENCY OF URINATION. TECHNIQUE: Axial CT images were obtained through the abdomen and pelvis without IV contrast. All CT scans at this location are performed using CT dose reduction for ALARA by means of automated exposure control. COMPARISON: 10/04/2020 FINDINGS: LOWER CHEST: There is decreased prominence ground glass opacities in bilateral lung bases, likely res idual lung disease. AORTA / ARTERIES: No significant abnormality. IVC / VEINS: No significant abnormality. LYMPH NODES: No significant adenopathy. COLON: No significant abnormality. APPENDIX: No significant abnormality. STOMACH / SMALL BOWEL: No significant abnormality. PERITONEUM: No free fluid. No free air. No fluid collection. LIVER: No significant abnormality. GALLBLADDER: No significant abnormality. BILE DUCTS: No significant abnormality. PANCREAS: No significant abnormality. SPLEEN: No significant abnormality. ADRENALS: No significant abnormality. RIGHT KIDNEY / URETER: No significant abnormality. LEFT KIDNEY / URETER: Unchanged 4 mm stone within the left kidney. No hydronephrosis. There is a 4 mm calcification in the left adnexa along the course of the left ureter, which may represent a small no nobstructing left ureteral stone. No hydroureter. URINARY BLADDER: No significant abnormality. REPRODUCTIVE ORGANS: No significant abnormality. SKELETAL SYSTEM: No significant abnormality. ADDITIONAL FINDINGS: None. IMPRESSION: 1. Unchanged 4 mm stone within the left kidney. No hydronephrosis. There is a 4 mm calcification with in the left adnexa along the course of the left ureter which may represent a small nonobstructing lef t ureteral stone. No hydroureter. 2. Decreased prominence of bibasilar lung disease. Signer Name: Parmjit Chaidez DO Signed: 04/09/2021 10:45 AM Workstation Name: [id number]
== END 2021-04-09 09:26 | disposition home or self-care (01) ==
LOC: CT 09:25
PROVIDERS: ATTEND Urology
DX: N20.0 Calculus of kidney (principal); N28.89 Other specified disorders of kidney and ureter; R91.8 Other nonspecific abnormal finding of lung field; R39.15 Urgency of urination
CPT/HCPCS: 74176

== ENCOUNTER 2021-04-24 21:23 | Emergency (ER) | payer OTHER ==
[2021-04-24 21:29] VITALS: BP 111/75
[2021-04-24] MEDS ORDERED: HYDROcodone/ACETAMINOPHEN 5-325 MG TAB PO ONE (21:52)
--- NOTE | 2021-04-24 22:03 | Emergency Department Report ---
ED General Adult HPI - General Chief complaint: Extremity Injury, Lower Stated complaint: RIGHT HIP INJURY Time Seen by Provider: 04/24/21 21:50 Source: patient Mode of arrival: Ambulatory Limitations: No Limitations - History of Present Illness Initial comments: Patient 40-year-old -Mal[place] female with history of fibromyalgia and chronic headache. Patient presents tonight for right lateral posterior hip pain status post ground-level fall 2 days ago. . Patient states pain is 7/10 radiating to the right lower extremity. Patient is ambulatory however. Pain is exacerbated by prolonged standing and walking. Pain is relieved by offloading and rest. There is no numbness or tingling. There is been no loss or decrease in bowel or bladder function. Patient denies other injury or pain. - Related Data Previous Rx's Medication Instructions Recorded Last Taken Type Sulfamethoxazole/Trimethoprim 1 each PO BID #10 tablet 09/18/20 Unknown Rx [Bactrim DS TAB] Azithromycin [Zithromax TAB] 500 mg PO QDAY 5 Days #5 tablet 10/04/20 Unknown Rx Esomeprazole Magnesium [NexIUM] 40 mg PO QDAY 30 Days #30 10/04/20 Unknown Rx capsule. Ondansetron [Zofran ODT TAB] 4 mg PO Q6HR PRN #10 tab.rapdis 10/04/20 Unknown Rx Acetaminophen [Acetaminophen TAB] 1,000 mg PO Q6HR PRN #30 tablet 04/24/21 Unknown Rx Capsaicin 0.075% [Zostrix Hp 1 applicatio TP TID PRN #1 tube 04/24/21 Unknown Rx 0.075%] diphenhydrAMINE [Benadryl CAP] 25 mg PO Q8HR PRN #30 capsule 04/24/21 Unknown Rx Allergies Allergy/AdvReac Type Severity Reaction Status Date / Time cyclobenzaprine Allergy Swelling Verified 09/18/20 09:31 [From Flexeril] ketorolac [From Toradol] Allergy Swelling Verified 09/18/20 09:31 ED Review of Systems ROS: Stated complaint: RIGHT HIP INJURY Other details as noted in HPI Constitutional: denies: chills, fever Eyes: denies: eye pain, eye discharge, vision change ENT: denies: ear pain, throat pain Respiratory: denies: cough, shortness of breath, wheezing Cardiovascular: denies: chest pain, palpitations Endocrine: no symptoms reported Gastrointestinal: denies: abdominal pain, nausea, diarrhea Genitourinary: denies: urgency, dysuria, discharge Musculoskeletal: back pain, arthralgia, myalgia, other (right lateral hip pain) Skin: denies: rash, lesions Neurological: denies: headache, weakness, numbness, paresthesias, vertigo Psychiatric: denies: anxiety, depression Hematological/Lymphatic: denies: easy bleeding, easy bruising ED Past Medical Hx - Past Medical History Previous Medical History?: Yes Hx Hypertension: Yes Hx Headaches / Migraines: Yes Additional medical history: IBS, pancreatitis. Idiopathic intracranial hypertension - Surgical History Past Surgical History?: Yes Additional Surgical History: TL - Social History Smoking Status: Never Smoker Substance Use Type: None - Medications Home Medications: Home Medications Medication Instructions Recorded Confirmed Last Taken Type Sulfamethoxazole/Trimethoprim 1 each PO BID #10 tablet 09/18/20 Unknown Rx [Bactrim DS TAB] Azithromycin [Zithromax TAB] 500 mg PO QDAY 5 Days #5 tablet 10/04/20 Unknown Rx Esomeprazole Magnesium [NexIUM] 40 mg PO QDAY 30 Days #30 10/04/20 Unknown Rx capsule. Ondansetron [Zofran ODT TAB] 4 mg PO Q6HR PRN #10 tab.rapdis 10/04/20 Unknown Rx Acetaminophen [Acetaminophen TAB] 1,000 mg PO Q6HR PRN #30 tablet 04/24/21 Unknown Rx Capsaicin 0.075% [Zostrix Hp 1 applicatio TP TID PRN #1 tube 04/24/21 Unknown Rx 0.075%] diphenhydrAMINE [Benadryl CAP] 25 mg PO Q8HR PRN #30 capsule 04/24/21 Unknown Rx ED Physical Exam - General Limitations: No Limitations General appearance: alert, in no apparent distress - Head Head exam: Present: normocephalic, normal inspection - Eye Eye exam: Present: normal appearance, PERRL, EOMI Pupils: Present: normal accommodation - ENT ENT exam: Present: mucous membranes moist - Neck Neck exam: Present: normal inspection, full ROM. Absent: tenderness - Respiratory Respiratory exam: Present: normal lung sounds bilaterally. Absent: respiratory distress, wheezes, stridor - Cardiovascular Cardiovascular Exam: Present: regular rate, normal rhythm, normal heart sounds. Absent: systolic murmur, diastolic murmur, rubs, gallop - GI/Abdominal GI/Abdominal exam: Present: soft, normal bowel sounds. Absent: distended, tenderness, bruit, hernia - Rectal Rectal exam: Present: deferred - Extremities Exam Extremities exam: Present: normal inspection, full ROM - Expanded Lower Extremity Exam Right Hip exam: Present: full ROM, tenderness, pelvic stability. Absent: swelling, abrasion, laceration, ecchymosis, deformity, crepidus, dislocation, erythema, shortening Upper Leg exam: Present: full ROM. Absent: tenderness Knee exam: Present: full ROM. Absent: tenderness Lower Leg exam: Present: full ROM. Absent: tenderness Ankle exam: Present: full ROM. Absent: tenderness Foot/Toe exam: Present: full ROM. Absent: tenderness Neuro vascular tendon exam: Absent: pulse deficit, motor deficit, sensory deficit, tendon deficit Gait: Positive: observed and limited by pain - Back Exam Back exam: Present: normal inspection - Neurological Exam Neurological exam: Present: alert, oriented X3, CN II-XII intact, reflexes normal - Expanded Neurological Exam Expanded Patient oriented to: Present: person, place, time Speech: Present: fluid speech Motor strength exam: RLE: 5, LLE: 5 Best Eye Response ([place]): (4) open spontaneously Best Motor Response ([place]ena): (6) obeys commands Best Verbal Response ([place]ena): (5) oriented Alena Total: 15 - Psychiatric Psychiatric exam: Present: normal affect, normal mood - Skin Skin exam: Present: warm, dry, intact, normal color. Absent: rash ED Course Vital Signs 04/24/21 21:25 Temperature 98.3 F Pulse Rate 69 Respiratory 18 Rate Blood Pressure 111/75 O2 Sat by Pulse 100 Oximetry ED Medical Decision Making - Radiology Data Radiology results: report reviewed, image reviewed RIGHT HIP 2 VIEWS INDICATION / CLINICAL INFORMATION: right hip pain s/p fall COMPARISON: None available. FINDINGS: BONES / JOINT(S): No acute fracture or subluxation. No significant arthritis. SOFT TISSUES: No significant abnormality. ADDITIONAL FINDINGS: None. Signer Name: Lance Ching MD Signed: 04/24/2021 10:32 PM Workstation Name: [id number] - Medical Decision Making X-ray normal no fracture no dislocation no subluxation , pain is improved, headache is relieved after medications given in ED. plan DC to home, continue to follow with primary care doctor call for appointment tomorrow. Hip exercises as directed, moist heat therapy, return to emergency department should symptoms worsen. Patient verbalizes agreement and understanding with discharge plan. Patient DC'd home in stable condition at this time. Critical care attestation.: If time is entered above; I have spent that time in minutes in the direct care of this critically ill patient, excluding procedure time. ED Disposition Clinical Impression: Hip strain Qualifiers: Encounter type: initial encounter Laterality: right Qualified Code(s): S76.011A - Strain of muscle, fascia and tendon of right hip, initial encounter Disposition: HOME / SELF CARE / HOMELESS Is pt being admited?: No Does the pt Need Aspirin: No Condition: Stable Instructions: Muscle Strain, [id number], Adductor Muscle Strain Rehab- [facility] Additional Instructions: Take medications as prescribed, follow-up with your doctor in 2 to 3 days. Return to emergency department should symptoms worsen. Prescriptions: Acetaminophen [Acetaminophen TAB] 1,000 mg PO Q6HR PRN #30 tablet PRN Reason: Pain diphenhydrAMINE [Benadryl CAP] 25 mg PO Q8HR PRN #30 capsule PRN Reason: Headache Capsaicin 0.075% [Zostrix Hp 0.075%] 1 applicatio TP TID PRN #1 tube PRN Reason: Pain Referrals: KYLER DELAROSA MD [Referring] - 3-5 Days Forms: Work/School Release Form(ED) Time of Disposition: 23:05
--- NOTE | 2021-04-24 22:36 | XRay Report ---
RIGHT HIP 2 VIEWS INDICATION / CLINICAL INFORMATION: right hip pain s/p fall COMPARISON: None available. FINDINGS: BONES / JOINT(S): No acute fracture or subluxation. No significant arthritis. SOFT TISSUES: No significant abnormality. ADDITIONAL FINDINGS: None. Signer Name: Lance Ching MD Signed: 04/24/2021 10:32 PM Workstation Name: [id number]
== END 2021-04-25 00:15 | disposition home or self-care (01) ==
LOC: ED 21:23
DX: S76.011A Strain of muscle, fascia and tendon of right hip, initial encounter (principal); I10 Essential (primary) hypertension; M79.7 Fibromyalgia; G89.29 Other chronic pain; Z88.8 Allergy status to other drugs, medicaments and biological substances; Z79.899 Other long term (current) drug therapy; W18.39XA Other fall on same level, initial encounter; Y93.89 Activity, other specified; Y92.89 Other specified places as the place of occurrence of the external cause; Y99.8 Other external cause status
CPT/HCPCS: 99283